=== PATIENT | male | born 1995 | race African-American/Black ===

== ENCOUNTER 2017-07-07 10:49 | Inpatient (IN) | payer MEDICARE ==
[2017-07-07] MEDS: MAGNESIUM SULFATE 1GM 100 ML IV (10:53)
[2017-07-07] MEDS ORDERED: methylPREDNISolone SOD SUCC PF 125 MG/2 ML VIAL. (10:54)
[2017-07-07] MEDS ORDERED: IPRATRPIUM/ALBUTEROL 0.5/2.5MG 3 ML NEBU. (10:55)
[2017-07-07] MEDS: methylPREDNISolone SOD SUCC PF 125 MG/2 ML VIAL. IV (10:57)
[2017-07-07] MEDS ORDERED: EPINEPHrine 1 MG/ML VIAL (11:02)
[2017-07-07] MEDS ORDERED: FAMOTIDINE 20 MG/2 ML VIAL (11:02)
[2017-07-07] MEDS: FAMOTIDINE 20 MG/2 ML VIAL IVP (11:05)
[2017-07-07] MEDS ORDERED: ALBUTEROL SULFATE 2.5 MG/3 ML NEBU. (11:08)
[2017-07-07 11:11] LABS: AGAP ISTAT 16 mmol/L (6-14); BUN ISTAT 7 mg/dL (8-26); CHLORIDE ISTAT 103 mmol/L (98-110); CREATININE ISTAT 0.8 mg/dL (0.5-1.4); GLUCOSE ISTAT 187 mg/dL (70-99); HEMATOCRIT ISTAT 48 % (37-52); HEMOGLOBIN ISTAT 16.3 g/dL (14-18); ION CA ISTAT 1.31 mmol/L (1.13-1.32); POTASSIUM ISTAT 4.2 mmol/L (3.5-5.0); SODIUM ISTAT 143 mmol/L (135-145); TOT CO2 ISTAT 30 mmol/L (23-32)
[2017-07-07] MEDS: EPINEPHrine 1 MG/ML VIAL IM (11:12)
[2017-07-07] MEDS: IPRATRPIUM/ALBUTEROL 0.5/2.5MG 3 ML NEBU. NEB ×4 (11:15→19:47)
[2017-07-07] MEDS: ALBUTEROL SULFATE 2.5 MG/3 ML NEBU. CONT NEB (11:15)
[2017-07-07] MEDS: IV NORMAL SALINE 1000ML BAG 1,000 ML IV ×3 (11:26→23:05)
[2017-07-07 11:27] LABS: BASO # 0.1 x10^3/uL (0.0-0.2); BASO % 1 % (0-3); EOS # 1.3 x10^3/uL (0.0-0.7); EOS % 10 % (0-3); HEMATOCRIT 44.2 % (39.0-53.0); HEMOGLOBIN 14.8 g/dL (13.0-17.5); LYMPH % 24 % (24-48); MEAN CORPUSCULAR HEMOGLOBIN 29 pg (25-35); MEAN CORPUSCULAR HGB CONC 34 g/dL (31-37); MEAN CORPUSCULAR VOLUME 86 fL (79-100); MONO # 1.9 x10^3/uL (0.0-1.1); MONO % 15 % (0-9); NEUT # 6.3 x10^3uL (1.8-7.7); NEUT % 51 % (31-73); PLATELET COUNT 404 x10^3/uL (140-400); RED BLOOD COUNT 5.12 x10^6/uL (4.30-5.70); RED CELL DISTRIBUTION WIDTH 13.3 % (11.5-14.5); WHITE BLOOD COUNT 12.6 x10^3/uL (4.0-11.0)
[2017-07-07 11:29] LABS: ADD MAN DIFF? YES
[2017-07-07] MEDS ORDERED: MAGNESIUM SULFATE 1GM 100 ML IV (11:30)
[2017-07-07 11:37] LABS: ANION GAP 3 (6-14); BLOOD UREA NITROGEN 8 mg/dL (8-26); CARBON DIOXIDE 32 mmol/L (21-32); CHLORIDE 105 mmol/L (98-107); CREATININE 0.9 mg/dL (0.7-1.3); GFR 125.4; GLUCOSE 186 mg/dL (70-99); POTASSIUM 4.6 mmol/L (3.5-5.1); SODIUM 140 mmol/L (136-145)
[2017-07-07 11:41] LABS: BASE EXCESS ABG -5 mmol/L (-3-3); HCO3 ABG 31 mmol/L (21-28); PO2 ABG 305 mmHg (85-108); SAT O2 ABG 99 % (92-99)
[2017-07-07 11:44] LABS: LACTIC ACID 0.5 mmol/L (0.4-2.0)
[2017-07-07 11:45] LABS: PCO2 ABG 127 mmHg (35-46)
[2017-07-07] MEDS ORDERED: DEXTROSE 5% IV (11:45)
[2017-07-07] MEDS ORDERED: AMINOPHYLLINE IV (11:45)
[2017-07-07] MEDS ORDERED: ONDANSETRON PF 4 MG/2 ML VIAL. IV ×2 (11:45→15:00)
[2017-07-07] MEDS ORDERED: ACETAMINOPHEN 325 MG TABLET. PO ×2 (11:45→15:00)
[2017-07-07 11:46] LABS: FIO2 ABG 52
[2017-07-07 11:48] LABS: TROPONINI < 0.017 ng/mL (0.000-0.055)
[2017-07-07 11:50] LABS: ALBUMIN 4.1 g/dL (3.4-5.0); ALK PHOS 75 U/L (46-116); ALT (SGPT) 22 U/L (16-63); AST (SGOT) 24 U/L (15-37); DIRECT BILIRUBIN 0.1 mg/dL (0.0-0.2); TOTAL BILIRUBIN 0.2 mg/dL (0.2-1.0); TOTAL PROTEIN 8.4 g/dL (6.4-8.2)
[2017-07-07 11:53] LABS: NT-PRO BNP 29 pg/mL (0-124)
[2017-07-07 11:53] LABS: CKMB INDEX 0.8 % (0-4); CKMB MASS 3.9 ng/mL (0.0-3.6); CREATINE KINASE 475 U/L (39-308)
[2017-07-07] MEDS: DEXTROSE 5% IV (11:56)
[2017-07-07] MEDS: AMINOPHYLLINE IV (11:56)
[2017-07-07 12:06] LABS: INFLUENZA A PATIENT NEGATIVE (NEGATIVE); INFLUENZA B PATIENT NEGATIVE (NEGATIVE); OBC FLU VALID
[2017-07-07] MEDS ORDERED: ETOMIDATE 20 MG/10 ML VIAL. IV (12:39)
[2017-07-07] MEDS ORDERED: SUCCINYLCHOLINE 200 MG/10 ML VIAL. (12:39)
[2017-07-07 13:00] LABS: % ATYL 9 % (0-0); % BANDS 2 % (0-9); % BASOS 2 % (0-3); % EOS 7 % (0-5); % LYMPHS 15 % (24-48); % MONOS 16 % (0-10); % SEGS 49 % (35-66); PLT ESTIMATE ADEQUATE (ADEQUATE)
[2017-07-07] MEDS ORDERED: IV NORMAL SALINE 500ML BAG 500 ML IV (13:00)
[2017-07-07] MEDS ORDERED: ATROPINE 0.5 MG/5 ML DISP.SYRIN. IV (13:00)
[2017-07-07] MEDS: DEXMEDETOMIDINE 200 MCG in IV NORMAL SALINE 50ML 48 ML IV (14:01)
[2017-07-07 14:03] LABS: BASE EXCESS ABG -4 mmol/L (-3-3); HCO3 ABG 24 mmol/L (21-28); PO2 ABG 102 mmHg (85-108); SAT O2 ABG 97 % (92-99)
[2017-07-07 14:17] LABS: PCO2 ABG 51 mmHg (35-46); PH ABG 7.28 (7.35-7.45)
[2017-07-07] MEDS: FAMOTIDINE 20 MG TABLET. PO (21:45)
[2017-07-07] MEDS: MONTELUKAST SODIUM 10 MG TABLET. PO (21:45)
[2017-07-07] MEDS: methylPREDNISolone SOD SUCC PF 40 MG/ML VIAL. IV (21:46)
[2017-07-07 23:11] LABS: MRSA BY PCR Negative (Negative)
[2017-07-08] MEDS: IPRATRPIUM/ALBUTEROL 0.5/2.5MG 3 ML NEBU. NEB ×5 (05:37→20:32)
[2017-07-08 05:46] LABS: ADD MAN DIFF? NO
[2017-07-08] MEDS: AMINOPHYLLINE IV (05:50)
[2017-07-08] MEDS: methylPREDNISolone SOD SUCC PF 40 MG/ML VIAL. IV ×3 (05:50→21:39)
[2017-07-08] MEDS: DEXTROSE 5% IV (05:50)
[2017-07-08] MEDS: DEXMEDETOMIDINE 200 MCG in IV NORMAL SALINE 50ML 48 ML IV (05:51)
[2017-07-08] MEDS: IV NORMAL SALINE 1000ML BAG 1,000 ML IV (05:52)
[2017-07-08 05:56] LABS: BASO % 0 % (0-3); EOS % 0 % (0-3); HEMATOCRIT 41.2 % (39.0-53.0); HEMOGLOBIN 13.9 g/dL (13.0-17.5); LYMPH # 0.4 x10^3/uL (1.0-4.8); LYMPH % 6 % (24-48); MEAN CORPUSCULAR HEMOGLOBIN 29 pg (25-35); MEAN CORPUSCULAR HGB CONC 34 g/dL (31-37); MEAN CORPUSCULAR VOLUME 86 fL (79-100); MONO # 0.3 x10^3/uL (0.0-1.1); MONO % 5 % (0-9); NEUT # 5.8 x10^3uL (1.8-7.7); NEUT % 89 % (31-73); PLATELET COUNT 329 x10^3/uL (140-400); RED BLOOD COUNT 4.82 x10^6/uL (4.30-5.70); RED CELL DISTRIBUTION WIDTH 13.4 % (11.5-14.5); WHITE BLOOD COUNT 6.5 x10^3/uL (4.0-11.0)
[2017-07-08 06:10] LABS: ANION GAP 12 (6-14); BLOOD UREA NITROGEN 6 mg/dL (8-26); CARBON DIOXIDE 22 mmol/L (21-32); CHLORIDE 106 mmol/L (98-107); CREATININE 1.1 mg/dL (0.7-1.3); GFR 99.5; GLUCOSE 145 mg/dL (70-99); SODIUM 140 mmol/L (136-145)
[2017-07-08] MEDS: FAMOTIDINE 20 MG TABLET. PO ×2 (08:47→21:38)
[2017-07-08] MEDS: MONTELUKAST SODIUM 10 MG TABLET. PO (21:38)
[2017-07-09] MEDS: methylPREDNISolone SOD SUCC PF 40 MG/ML VIAL. IV ×2 (05:31→14:47)
[2017-07-09] MEDS: IPRATRPIUM/ALBUTEROL 0.5/2.5MG 3 ML NEBU. NEB ×4 (07:07→19:36)
[2017-07-09] MEDS: FAMOTIDINE 20 MG TABLET. PO ×2 (09:15→20:01)
[2017-07-09] MEDS: 0.9 % SODIUM CHLORIDE 10 ML DISP.SYRIN. IV (09:17)
[2017-07-09] MEDS: CETIRIZINE HCL 10 MG TABLET. PO (16:03)
[2017-07-09] MEDS: MONTELUKAST SODIUM 10 MG TABLET. PO (20:01)
[2017-07-10] MEDS: ALBUTEROL SULFATE 2.5 MG/3 ML NEBU. NEB (04:31)
[2017-07-10] MEDS: IPRATRPIUM/ALBUTEROL 0.5/2.5MG 3 ML NEBU. NEB ×3 (07:12→15:19)
[2017-07-10] MEDS: FAMOTIDINE 20 MG TABLET. PO (09:03)
[2017-07-10] MEDS: CETIRIZINE HCL 10 MG TABLET. PO (09:03)
[2017-07-10] MEDS: predniSONE 10 MG TABLET PO (09:03)
== END 2017-07-10 14:40 | disposition home or self-care (01) | DRG 189 ==
LOC: 5 SOUTH 07-08 18:45 → ER 10:49 → 1 WEST ICU 12:00
PROC: 5A09357 Assistance with Respiratory Ventilation, Less than 24 Consecutive Hours, Continuous Positive Airway Pressure (ICD-10-PCS; principal; 2017-07-07)
PROC: 5A09357 Assistance with Respiratory Ventilation, Less than 24 Consecutive Hours, Continuous Positive Airway Pressure (ICD-10-PCS; 2017-07-08)
DX: J96.01 Acute respiratory failure with hypoxia (principal); E87.2 Acidosis; J45.902 Unspecified asthma with status asthmaticus; J96.02 Acute respiratory failure with hypercapnia; F41.9 Anxiety disorder, unspecified; Z90.49 Acquired absence of other specified parts of digestive tract; Z91.010 Allergy to peanuts; Z91.012 Allergy to eggs; Z91.011 Allergy to milk products; Z91.018 Allergy to other foods
CPT/HCPCS: 36415; 36600; 71045; 80047; 80048; 80076; 82553; 82805; 83605; 83880; 84484; 85007; 85025; 87040; 87641; 87804; 87804-59; 93005; 94640; 94644; 94660; 94760; 96365; 96367; 96372; 96375; 99285; 99285-25; J0171; J0280; J2920; J2930; J3475; J7030; J7512; J7613; J7620; S0028

== ENCOUNTER 2018-04-06 16:53 | Emergency (ER) | payer MEDICARE ==
[~2018-04-06] VITALS: Ht 160 cm; Wt 59.0 kg
[~2018-04-06 16:53] MED LIST: BUSP10TA PO; CETI10CA PO; CETI10TA22 PO; CLON0.5T PO; EPIPEN0.3 MG/0.3 IJ; MOME13HF2 IH; MONT10TA9 PO
[2018-04-06 17:10] VITALS: BP 131/69
[2018-04-06] MEDS ORDERED: HYDR15CR20 TP (17:44)
[2018-04-06] MEDS ORDERED: CLOB15CR TP (17:44)
[2018-04-06] MEDS ORDERED: TRIA15OI TP (17:44)
--- NOTE | 2018-04-09 00:08 | PHYS DOC ---
Past Medical History Past Medical History: Asthma, Other Additional Past Medical Histor: eczema, allergies; intubation Past Surgical History: Appendectomy, Other Additional Past Surgical Histo: nasal; right chest tube Alcohol Use: Occasionally Drug Use: Marijuana Adult General Chief Complaint Chief Complaint: SKIN PROBLEM HPI HPI Patient seen during downtime, please see paper documentation. Review of Systems Review of Systems Allergies Allergies Allergies Coded Allergies Type Severity Reaction Last Updated Verified orange juice Allergy Severe hives 12/09/13 Yes peanut Allergy Severe ANAPHYLAXIS 12/09/13 Yes soy Allergy Severe hives 12/09/13 Yes diphenhydramine Allergy Intermediate hives 12/18/13 Yes egg Allergy Intermediate Hives and swelling 12/18/13 Yes milk Allergy Intermediate rash 12/18/13 Yes strawberry Allergy Intermediate Hives 12/09/13 Yes Physical Exam Physical Exam Current Patient Data Vital Signs Vital Signs Date Time Temp Pulse Resp B/P (MAP) Pulse Ox O2 Delivery O2 Flow Rate FiO2 04/06/18 17:10 97.8 89 18 131/69 (89) 99 Room Air 97.8 EKG EKG [] Radiology/Procedures Radiology/Procedures [] Course & Med Decision Making Course & Med Decision Making [] Dragon Disclaimer Dragon Disclaimer This electronic medical record was generated, in whole or in part, using a voice recognition dictation system. Departure Departure Impression: Primary Impression: Medication refill Additional Impression: Eczema Disposition: 01 HOME, SELF-CARE Condition: STABLE Patient Instructions: Eczema Additional Instructions: Fill prescriptions and use as directed. Follow up with your road grader for further evaluation. Return to the ER if your symptoms worsen. Scripts Triamcinolone Acetonide (TRIAMCINOLONE ACETONIDE 0.1% OINT) 15 Gm Oint...g. 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 1 ZOILA TP DAILY PRN for ITCHING for 30 Days, #30 GM 1 Refill 2.5% hydrocortisone cream Prov: SHAAN VEGAS APRN 04/06/18 Problem Qualifiers SHAAN VEGAS APRN Apr 09, 2018 00:08
== END 2018-04-06 18:04 | disposition home or self-care (01) ==
LOC: ER 16:53
DX: L30.9 Dermatitis, unspecified (principal); Z76.0 Encounter for issue of repeat prescription; J45.909 Unspecified asthma, uncomplicated; Z88.8 Allergy status to other drugs, medicaments and biological substances; Z91.012 Allergy to eggs; Z91.011 Allergy to milk products; Z91.010 Allergy to peanuts
CPT/HCPCS: 99283